=== PATIENT | male | born 1970 | race Caucasian/White ===

== ENCOUNTER → 2017-01-23 14:38 | Outpatient (CLI) | payer BC | END | disposition home or self-care (01) | LOC: D.CT 14:30 | DX: J32.9 Chronic sinusitis, unspecified (principal) ==

== ENCOUNTER 2017-04-12 14:19 | Inpatient (IN) | payer BC ==
[~2017-04-12] VITALS: Ht 170.2 cm; Wt 77.1 kg
[2017-04-12 14:46] LABS: BASOPHILS 0.2 % (0-2); HEMATOCRIT 48.1 % (42.0-54.0); HEMOGLOBIN 17.3 g/dL (13.5-17.5); IMMATURE GRANULOCYTES 0.5 % (0-5); LYMPHOCYTES 19.7 % (15-50); MCH 30.4 pg (26.0-34.0); MCV 84.5 fL (80.0-100.0); MEAN PLATELET VOLUME 11.8 fL (7.4-10.4); MONOCYTES 8.3 % (2-11); NEUTROPHILS 68.3 % (40-80); PLATELET COUNT 207 10x3/uL (130-400); RBC 5.69 10x6/uL (4.20-6.10); RDW 12.5 % (11.5-14.5); WBC 10.4 10x3/uL (4.8-10.8)
[2017-04-12 15:05] LABS: ALBUMIN 3.6 g/dL (3.4-5.0); ANION GAP 20.7 mmol/L (8-16); BILIRUBIN - TOTAL 0.82 mg/dL (0.2-1.3); CALCIUM 9.2 mg/dL (8.5-10.1); CARBON DIOXIDE 18.1 mmol/L (21.0-32.0); CREATININE - SERUM 1.2 mg/dL (0.6-1.3); POTASSIUM - SERUM 4.8 mmol/L (3.5-5.1); PROTEIN - SERUM 7.7 g/dL (6.4-8.2)
[2017-04-12] MEDS ORDERED: AMBIEN10 MG PO (18:58)
[2017-04-12] MEDS ORDERED: ALLEGRA-D1 TAB.SR1 PO (18:58)
[2017-04-12 20:00] VITALS: BP 136/88
[2017-04-12 20:22] VITALS: BP 119/82; BMI 26.7
[2017-04-13] VITALS: BP 139/83
[2017-04-13 04:00] VITALS: BP 130/83
[2017-04-13 05:45] LABS: BASOPHILS 0.1 % (0-2); EOSINOPHILS 1.8 % (0-7); HEMATOCRIT 42.4 % (42.0-54.0); HEMOGLOBIN 14.9 g/dL (13.5-17.5); IMMATURE GRANULOCYTES 0.3 % (0-5); LYMPHOCYTES 17.6 % (15-50); MCH 30.3 pg (26.0-34.0); MCHC 35.1 g/dL (31.0-37.0); MCV 86.2 fL (80.0-100.0); MEAN PLATELET VOLUME 10.8 fL (7.4-10.4); MONOCYTES 11.9 % (2-11); NEUTROPHILS 68.3 % (40-80); RBC 4.92 10x6/uL (4.20-6.10); RDW 12.6 % (11.5-14.5); WBC 11.4 10x3/uL (4.8-10.8)
[2017-04-13 05:48] LABS: PLATELET COUNT 155 10x3/uL (130-400)
[2017-04-13 06:16] LABS: ALBUMIN 3.2 g/dL (3.4-5.0); ALKALINE PHOSPHATASE 73 U/L (46-116); ALT (SGPT) 42 U/L (10-68); BILIRUBIN - TOTAL 0.93 mg/dL (0.2-1.3); CALCIUM 8.3 mg/dL (8.5-10.1); CHLORIDE - SERUM 102 mmol/L (98-107); MAGNESIUM - SERUM 1.9 mg/dL (1.8-2.4); PHOSPHOROUS 3.1 mg/dL (2.5-4.9); PROTEIN - SERUM 6.7 g/dL (6.4-8.2); SODIUM 138 mmol/L (136-145); UREA NITROGEN 12 mg/dL (7-18)
[2017-04-13 06:23] LABS: CALC OSMOLALITY 282 mosm/kg (275-300); CARBON DIOXIDE 26.1 mmol/L (21.0-32.0); CREATININE - SERUM 0.8 mg/dL (0.6-1.3); GLUCOSE 229 mg/dL (74-106); POTASSIUM - SERUM 3.8 mmol/L (3.5-5.1); eGFR NON AFRICAN AMERICAN > 90 mL/min (90-120)
[2017-04-13 06:55] LABS: APPEARANCE CLEAR (CLEAR); BILIRUBIN NEGATIVE (NEGATIVE); COLOR YELLOW (YELLOW); GLUCOSE 1000 mg/dL (NEGATIVE); KETONE SMALL mg/dL (NEGATIVE); NITRITE NEGATIVE (NEGATIVE); PROTEIN NEGATIVE (NEGATIVE); UROBILINOGEN NORMAL (NORMAL)
[2017-04-13 06:58] LABS: EPITHELIAL CELLS 0-5 /hpf (0-5); RED CELLS - URINE OCC /hpf (0-5)
[2017-04-13 06:59] LABS: BACTERIA FEW /hpf (NONE SEEN); HYALINE CAST OCC /lpf (NONE SEEN); WAXY CAST RARE /lpf (NONE SEEN); YEAST >1+ WITH HYPHAE /hpf (NONE SEEN)
--- NOTE | 2017-04-13 08:00 | NUR ---
PT LEFT FLOOR FOR PROCEDURE, A&O, DENIES NEEDS
[2017-04-13 08:24] VITALS: BP 138/83
[2017-04-13 11:44] VITALS: BP 131/82
[2017-04-13 12:15] VITALS: Ht 170.2 cm; Wt 77.1 kg
--- NOTE | 2017-04-13 19:15 | NUR ---
PATIENT IS AWAKE, ALERT AND ORIENTED X'S 4. PATIENT IS TALKING ON THE PHONE, HE GOT OFF THE PHONE TO TALK TO ME. HE ASKED IF HE IS GOING TO HAVE TO CONTINUE INSULIN FOR THE REST OF HIS LIFE. I EXPLAINED TO PATIENT THAT IF HE IS DIAGNOSED WITH TYPE 2 DIABETES IT CAN POSSIBLY BE CONTROLLED WITH DIET AND EXERCISE. EXPLAINED TO PATIENT THAT HE WILL NEED TO TALK TO HIS PRIMARY CARE PHYSICIAN ABOUT A PLAN TO CONTROL HIS BLOOD SURGAR. EXPLAINED THAT THERE ARE ALSO ORAL DIABETIC MEDICATION, BUT HE WILL HAVE TO TALK TO HIS DOCTOR ABOUT IT. HE VERBALIZED UNDERSTANDING. PALPATED BILATERAL PEDAL PULSES, EQUAL 2+ BILATERALLY. CAPILLARY REFILL <3 SECONDS IN ALL EXTREMETIES. NO VISIBLE BLOOD ON THE OUTSIDE OF DRESSING. KNEE IMMOBILIZER IS ON THE RIGHT KNEE. DENYS WRAP BANDAGE INTACT. PATIENT DENIES NEEDS AT THIS TIME. BED IN LOWEST POSITION, CALL LIGHT IN REACH. BED RIALS UP X'S 1, PER PATIENT REQUEST. AT BEDSIDE.
--- NOTE | 2017-04-13 20:47 | NUR ---
PATIENT IS REQUESTED AMBVONNIE FOR SLEEP. PAGED .
--- NOTE | 2017-04-13 20:53 | NUR ---
CALLED CASH ON DELIVERY CLERK, NOTIFIED HER OF NEEDING AMBIEN PULLED FROM THE PYXIS.
[2017-04-13 21:25] VITALS: BP 127/76
[2017-04-14 00:27] VITALS: BP 122/77
[2017-04-14 05:53] VITALS: BP 119/80
[2017-04-14 06:02] LABS: BASOPHILS 0.1 % (0-2); EOSINOPHILS 0.4 % (0-7); HEMATOCRIT 38.2 % (42.0-54.0); IMMATURE GRANULOCYTES 0.2 % (0-5); MCH 29.4 pg (26.0-34.0); MCV 86.4 fL (80.0-100.0); MEAN PLATELET VOLUME 10.6 fL (7.4-10.4); MONOCYTES 10.2 % (2-11); NEUTROPHILS 82.1 % (40-80); PLATELET COUNT 128 10x3/uL (130-400); RBC 4.42 10x6/uL (4.20-6.10); RDW 12.4 % (11.5-14.5); WBC 12.9 10x3/uL (4.8-10.8)
[2017-04-14 06:18] LABS: ANION GAP 13.6 mmol/L (8-16); CALCIUM 7.2 mg/dL (8.5-10.1); CARBON DIOXIDE 24.4 mmol/L (21.0-32.0); MAGNESIUM - SERUM 1.8 mg/dL (1.8-2.4); PHOSPHOROUS 3.1 mg/dL (2.5-4.9)
[2017-04-14 06:21] LABS: CREATININE - SERUM 1.4 mg/dL (0.6-1.3)
--- NOTE | 2017-04-14 07:30 | NUR ---
RECIEVED PT DURING WALKING ROUNDS. PT LATING IN BED WITH COMPLAINTS OF PAIN OF A 10 ON A SCALE OF 1-10, CUSTOM TAILOR APPRENTICE IN USE. ASSESSMENT DONE PER FLOWSHEET. BED IN LOW POSITION AND CALL LIGHT WITHIN REACH. WILL CONTINUE TO MONITOR.
[2017-04-14 07:44] VITALS: BP 107/69
--- NOTE | 2017-04-14 08:38 | OP ---
PATIENT NAME: REMA GASTON MEDICAL RECORD: [id number] :70 LOCATION:D.MS Morales2238 ADMISSION DATE:04/12/17 SURGEON: GOMEZ CALVO DO DATE OF OPERATION: 04/13/2017 PROCEDURE PERFORMED: Right tibial plateau open reduction and internal fixation. PREOPERATIVE DIAGNOSIS: Closed right tibial plateau fracture. POSTOPERATIVE DIAGNOSIS: Closed right tibial plateau fracture. INDICATIONS: Mr. Gaston is a 46-year-old male who fell out of a tree yesterday, sustained a right proximal tibia fracture, was comminuted into the plateau noted on CT scan that is very minimally displaced and after CT scan was done, he was seen and warned of the risks and benefits of this procedure, informed that he should probably get this fixed, so it did not collapse due to the fracture and he consented to have the procedure done. He was consented in the hospital. DESCRIPTION OF PROCEDURE: The patient was in the preoperative area given a block by anesthesia and taken to the operative suite, laid in supine position, given vancomycin preoperatively. The right leg was prepped and draped in sterile fashion, time out was performed and everyone was in agreement with the correct site and then the leg was elevated and Esmarch was used to exsanguinate the leg. A tourniquet was inflated to 350 mmHg, was up for 82 minutes total during the procedure. Blood loss approximately 100 mL. Once the tourniquet was inflated, the knee was flexed approximately 30 degrees. An incision was made between the IT band down to Gerdy's tubercle and down the proximal tibia somewhat. Careful dissection was made down through the IT band and then to the capsule of the knee and the proximal tibia. The tibialis anterior was cleared off. The anterior insertion was of the tibia. Once this was done, a clear spot was made for the plate. The plate was placed and once we got the plate placement in the correct position, K-wires were shot through to hold the plate in place and 2 proximal screws were placed and sucked the plate down and then the kickstand screw shaft was placed. Once this was done, 2 more proximal screws were placed, locking screws as well as a multidirectional in the more distal row of the proximal tibia plate to catch the posterior piece of the fracture fragment. Once this was done, there were 3 total screws in the proximal row and 3 in the more distal row in the proximal tibia. Then, another 2 of the screws were put in the shaft. The kickstand screw was changed out as well as the first 2 proximal screws put in. These were changed out and due to the length, this is all done under fluoroscopy and once we had the screws in, tourniquet was let down at 82 minutes. All the bleeding was coagulated with the Bovie. Yan was placed into the wound and then the IT band and some of the fascia over the anterior tibia was closed with [id number] 0 Vicryl suture. More Yan was placed on top of that and then the wound itself. Skin was closed with 2-0 Vicryl and then a zipline on the skin. This was done and Adaptic, 4 x 4s, ABD, Webril, and Armin wrap were placed over the incision. The patient was placed in a knee immobilizer. He is awakened and taken to recovery in stable condition. Blood loss approximately 100 mL. Tourniquet again was let down at 82 minutes. TRANSINT:[id number] Voice Confirmation ID: [id number] DOCUMENT ID: [id number] OPERATIVE REPORT [id number] REMA GASTON MICHAEL D, DO at 0838 CC: [id number] DICTATION DATE: 04/13/17 112 SENIOR SHAREPOINT DEVELOPER: 04/13/17 1304 ADM IN [facility] [address] [place] [address]
[2017-04-14 12:25] VITALS: BP 142/83
--- NOTE | 2017-04-14 12:36 | CN ---
PATIENT NAME:REMA DRAPER MEDICAL RECORD: [id number] : 70 LOCATION:D.MS Morales2238 ADMIT DATE: 04/12/17 ACCOUNT: [id number] CONSULTING PHYSICIAN: PAT RAMIREZ DO REFERRING PHYSICIAN: PAT FLORES MD DATE OF CONSULTATION: 04/13/2017 HISTORY OF PRESENT ILLNESS: A 46-year-old male admitted to general surgery, Dr. Flores for acute trauma, fell out of a tree, had abdominal pain. CTs negative for CT head, abdomen and C-spine negative. Imaging of the right knee showed comminuted displaced tibial plateau fracture. He is status post open reduction internal fixation, was found to have significantly elevated blood sugar of 465 on admission, consult for medical management of diabetes. Initial understanding was that he has new onset diabetes. The patient has prior history of diabetes. He has declined medications and is very rare to seek medical care. ALLERGIES: LISTED PENICILLIN, SULFA, TETRACYCLINE. MEDICATIONS: Only current medication listed as Ambien. REVIEW OF SYSTEMS: GENERAL: No acute change in weight or appetite. HEENT: No cephalgia, visual changes, tinnitus, epistaxis or dysphagia. CARDIOVASCULAR: Denies chest pain. PULMONARY: Denies hemoptysis. GASTROINTESTINAL: Had abdominal pain secondary to his fall out of the tree. No significant trauma via CT. MUSCULOSKELETAL: Comminuted fracture as noted above, status post open reduction internal fixation. ENDOCRINE: Previously diagnosed diabetes. The patient has declined treatment. PHYSICAL EXAMINATION: VITAL SIGNS: Temperature 98.2, blood pressure 131/82, heart rate 104, respirations 18, O2 saturation 98%. GENERAL: Alert, slightly sedated status post surgery. HEENT: Normocephalic, atraumatic. Eyes: Pupils equal, round, reactive. Ears: Canals patent, TMs are intact. Nose: Nares patent without drainage. Throat: No erythema, no exudates. NECK: Supple. No lymphadenopathy, no JVD. HEART: Regular rate and rhythm. LUNGS: Clear. ABDOMEN: Soft. EXTREMITIES: Present times 4. Again, status post open reduction internal fixation comminuted tibial plateau fracture. LABORATORY DATA: Urinalysis yellow clear, negative protein, small ketones, few bacteria. CBC: White count 11.4, hemoglobin 14.9, hematocrit 42.4, platelets 155. Chemistry shows sodium of 138, potassium 3.8, chloride 102, bicarbonate 26.1, BUN 12, creatinine 0.8, glucose 229, phosphorus 3.1, magnesium 1.9. LFTs normal. Glucose on admission 43. ASSESSMENT AND PLAN: Diabetes mellitus, status post trauma, status post open reduction internal fixation of tibial plateau fracture. Sliding scale insulin. Supportive care and diabetic diet. We will also obtain a hemoglobin A1c. Discussed with the patient what his sugars have been running on average for the CONSULT REPORT [id number] REMA DRAPER past month. TRANSINT:[id number] Voice Confirmation ID: [id number] DOCUMENT ID: [id number] PAT RAMIREZ DO at 1236 CC: [id number] DICTATION DATE: 04/13/17 1252 SHEARER PRINTED CIRCUIT BOARDS: 04/13/17 1357 ADM IN [facility] [address] [place] [address]
[2017-04-14 16:09] VITALS: BP 126/81
[2017-04-14 20:25] VITALS: BP 123/76
--- NOTE | 2017-04-14 23:51 | NUR ---
UPON ENTERING ROOM PATIENT RESTING WITH EYES CLOSED, SNORING. WOKE PATIENT UP TO CHECK HIS FINGER STICK BLOOD SUGAR. PATIENT AROUSED EASILY. HE WAS COOPERATIVE. LEFT ROOM TO GET INSULIN AND ANOTHER NURSE TO CO-SIGN. UPON RETURNING TO ROOM PATIENT ASLEEP, WOKE PATIENT UP TO GIVE HIM INSULIN. ADMINISTERED INSULIN PER ORDER. ASKED PATIENT ABOUT HIS PAIN, HE STATED "IT IS THE SAME, IT IS STILL A 10. I MOVED IT TO SEE IF IT WOULD HELP BUT IT DID NOT HELP AT ALL." I STATED "SO YOU DID NOT GET ANY RELIEF AT ALL FROM THE PAIN MEDICATION?" PATIENT STATED "NO. IT STILL FEELS THE SAME." OFFERED PATIENT AN ICE PACK, HE STATED "I CANNOT FEEL IT THROUGH THE BANDAGE, IT DOES NOT HELP WITH MY PAIN." I STATED "OKAY WELL I AM GOING TO TURN OFF YOUR LIGHT AND LET YOU GET SOME MORE REST." PATIENT AGREED.
[2017-04-15 00:40] VITALS: BP 121/64; BP 123/74
[2017-04-15 04:58] LABS: HEMOGLOBIN 12.9 g/dL (13.5-17.5)
[2017-04-15 08:22] VITALS: BP 132/79
[2017-04-15 13:02] VITALS: BP 130/74
--- NOTE | 2017-04-15 14:06 | NUR ---
NUTRITION F/U CHART REVIEWED, PT VISIT X2. SPOUSE AT BEDSIDE. INITIAL DM DIET EDU. PT IN PAIN LEFT LITERATURE FOR PT AND SPOUSE TO REVIEW. BRIEFLY DISCUSSED DM DIET GUIDELINES AND CHECKING GLUCOSE. WILL RETURN TO REVIEW INFO, ANSWER QUESTIONS WHEN APPROPRIATE. RD FOLLOWING
--- NOTE | 2017-04-15 14:15 | NUR ---
PT STATES PAIN IS 10/10 WHEN AWAKENED FOR TYLENOL SCHEDULE. DRIFTS BACK TO SNORING AFTER FINISHED TALKING. REPOSITIONED IN BED WITH PILLOWS UNDER RIGHT LEG FOR ELEVATION. CALL LIGHT IN REACH
[2017-04-15 16:21] VITALS: BP 129/76
--- NOTE | 2017-04-15 18:49 | NUR ---
VPatient Name: REMA DRAPER Admission Status: ER Accout number: [id number] Admission Date: 04-12-2017 : 1970 Admission Diagnosis: Attending: PAT FLORES Current LOS: 3 Anticipated DC Date: 04-16-2017 Planned Disposition: Home with Home Health Primary Insurance: [employer] OUT OF STATE Discharge Planning Comments: LATE ENTRY 1357 CM TO BEDSIDE TO DISCUSS DISCHARGE NEEDS. HIS , GRISELDA, HAD STEPPED OUT TO GET ICE PACK. 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 PLANS TO TAKE SOME VACATION TO ASSIST AT HOME. THEY HAVE A YOUNG DAUGHTER. CM HAD REVIEWED PHYSICAL THERAPY NOTES. THE PATIENT HAD DECLINED THERAPY 04/14. HE STATED HE WAS OOB TO THE CHAIR THIS AM. HE REMAINS IN BED. MOVING VERY LITTLE. STATES HE HAS A LOT OF PAIN W/ MOVEMENT. STATES DR CALVO SAID HE WOULD NEED A WALKER FOR HOME. DISCUSSED HOME HEALTH. PATIENT WAS UNCOMFORTABLE. REALLY DID NOT FEEL LIKE TALKING. DID NOT WANT HIS TO ANSWER QUESTIONS. CALLED [phone] TO [employer]. LEFT MSG AT [phone] DIRECTED BY [employer] 800 LINE. NO CB YET. SPOKE SG THE DIETITIAN. HE HAS VISITED WITH THE PATIENT FOR TEACHING AND IS PROVIDING REFERENCE MATERIAL. HE HAS SPOKEN WITH THE . THE HAD QUESTIONS ABOUT DISABILITY. 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 CM ADVISED HER TO S/W SOCIAL SECURITY. DME NEED WALKER & GLUCOMETER HOME HEALTH- PHYSICAL THERAPY AND NURSING PCP- DR JAMES WATT TO FOLLOW TO ASSIST W/ DCP WHEN PATIENT MORE COMFORTABLE. Nipping Machine Operator: Bibiana Acosta
--- NOTE | 2017-04-15 20:18 | NUR ---
SCHEDULED MEDICATIONS GIVEN AT THIS TIME. PT STATED PAIN 03/12. IV LEFT HAND PATENT WITH 1/2NS @ 50. IV RIGHT WRIST SL. DENIES ANY OTHER NEEDS. WILL CONTINUE WITH PLAN OF CARE.
[2017-04-15 20:21] VITALS: BP 138/62
--- NOTE | 2017-04-15 21:30 | NUR ---
PRN DILAUDID ADMINISTERED AT THIS TIME FOR PAIN 03/12. BS 221, ADMINISTERED 10 UNITS LANTUS ORDERED. PROVIDED PT WITH ICE TO RIGHT LEG. DENIES ANY FURTHER NEEDS AT THIS TIME. WILL CONTINUE WITH PLAN OF CARE.
--- NOTE | 2017-04-16 00:50 | NUR ---
BS 281, 6 UNITS HUMULIN R ADMINISTERED PER SS.
[2017-04-16 03:50] VITALS: BP 166/75
[2017-04-16 04:14] LABS: HEMATOCRIT 36.1 % (42.0-54.0); HEMOGLOBIN 12.6 g/dL (13.5-17.5)
--- NOTE | 2017-04-16 06:27 | NUR ---
BS 158, 2 UNITS HUMULIN R ADMINISTERED AT THIS TIME.
[2017-04-16 07:57] VITALS: BP 132/81
--- NOTE | 2017-04-16 09:40 | PN ---
PATIENT:REMA DRAPER MEDICAL RECORD: [id number] LOCATION:D.MS Gao ADMISSION DATE: 04/12/17 PROGRESS NOTE DATE OF SERVICE: 04/13/2017 ADDENDUM CHIEF COMPLAINT: Pain. SUBJECTIVE: I saw the patient postoperatively. From Dr. Patino's standpoint, the patient can be dismissed home tomorrow. I have reviewed the x-ray reports including the CT of the abdomen and pelvis, CT of the head, CT of the C-spine. Dr. Mena has seen the patient regarding his diabetes. The patient is complaining of right knee pain. His FOOD SCIENCE TECHNICIAN was evidently turned off and we have turned it back on so that he can get some analgesia. Palpation of the knee aggravates. Nothing alleviates. This is a progress note addendum. For the typed portion of the progress note, please see the chart. This will include past medical and surgical history, current medications, allergies, social history as well as family history. REVIEW OF SYSTEMS: No nausea, no vomiting, no fever, no chills. Positive for extremity pain. the review of systems is negative other than as is described above. PHYSICAL EXAMINATION: GENERAL: The patient appears acutely ill. He does not appear chronically ill. VITAL SIGNS: Reviewed. EARS: External ears appear normal. EYES: Extraocular movements are intact. NECK: Trachea is midline. CHEST: No intercostal retractions. PULMONARY: Nonlabored, no stridor. ABDOMEN: nontender. EXTREMITIES: Right lower extremity has been dressed at the knee. There is a knee immobilizer in place. BACK: No thoracic kyphosis. LYMPHATIC: No lymphangitic streaking of the exposed extremities. PSYCHIATRIC: The patient is anxious. NEUROLOGIC: Answers questions appropriately. IMPRESSION: Status post fall with tibial plateau fracture and new-onset diabetes mellitus. PLAN: Hopefully, home tomorrow if his blood sugars can be controlled and he can be started on a diabetic medication regimen. TRANSINT:[id number] Voice Confirmation ID: [id number] DOCUMENT ID: [id number] PROGRESS NOTE [id number] REMA DRAPER, PAT ROBINS at 0940 CC: [id number] DICTATION DATE: 04/13/17 164 SUPERVISOR PIPELINES: 04/13/17 1845 ADM IN [place] [address] [place] [address]
--- NOTE | 2017-04-16 09:40 | PN ---
PATIENT:REMA DRAPER MEDICAL RECORD: [id number] LOCATION:D.MS Gao ADMISSION DATE: 04/12/17 PROGRESS NOTE DATE OF SERVICE: 04/14/2017 PROGRESS NOTE ADDENDUM CHIEF COMPLAINT: Pain. His pain control is suboptimal. He has been switched to oral analgesia. I am going to switch him to Dilaudid orally. Movement of the right lower extremity aggravates. Nothing alleviates. Symptoms are of qvqjwgjy-ww-lajrdv intensity. This is a progress note addendum. For the typed portion of the progress note, please see the chart. This would include past medical and surgical history, current medications, allergies, and social history as well as family history. REVIEW OF SYSTEMS: Positive for extremity pain. Positive for anxiety. No nausea. No vomiting. No fever. No chills. No chest pain. No shortness of breath. Review of systems is negative other than as is described above. PHYSICAL EXAMINATION: GENERAL: The patient does not appear acutely ill. He does not appear chronically ill. VITAL SIGNS: Reviewed. EARS: External ears appear normal. EYES: Extraocular movements are intact. NECK: Trachea is midline. CHEST: No intercostal retractions. PULMONARY: Nonlabored. No stridor. ABDOMEN: Nontender. EXTREMITIES: No peripheral cyanosis. INTEGUMENT: No rash. No ulcerations. PSYCHIATRIC: Anxious affect. NEUROLOGIC: Answers questions appropriately. BACK: No thoracic kyphosis. LYMPHATIC: No lymphangitic streaking of the exposed extremities. IMPRESSION: 1. New-onset diabetes mellitus 2. Fall. 3. Right tibial plateau fracture. PLAN: Home when okay with Dr. Mena. TRANSINT:[id number] Voice Confirmation ID: [id number] DOCUMENT ID: [id number] PROGRESS NOTE [id number] REMA DRAPER, PAT ROBINS at 0940 CC: [id number] DICTATION DATE: 04/15/17 1545 GERIATRIC NURSE: 04/15/17 1742 ADM IN [place] [id number] [place] [address]
[2017-04-16 11:34] VITALS: BP 123/81
--- NOTE | 2017-04-16 11:50 | NUR ---
CM REASSESSMENT NOTE: PATIENT AND HAS REQUESTED [facility]. REFERRAL HAS BEEN SENT. [facility] WILL CALL CM TODAY REGARDING PATIENT ACCEPTANCE OR NOT.
--- NOTE | 2017-04-16 13:02 | NUR ---
PATIENT'S MOM IN ROOM. FSBS 208. PATIENT STATED CRYING. HE HELD HIS HAND OVER HIS ARM AND STATED "PLEASE DO NOT GIVE ME A SHOT. I HATE NEEDLES. I DON'T WANT IT." PATIENT'S MOM TALKED TO PATIENT TO TRY TO CONVIENCE HIM TO TAKE THE INSULIN, PATIENT KEPT ARGUING AND YELLING AT HER. I TALKED TO HIM AND TOLD HIM THE IMPORTANCE OF THE INSULIN, HE FINALLY AGREED. ADMINISTERED INSULIN ORDERED PER SLIDING SCALE. HE DENIES OTHER NEEDS AT THIS TIME.
--- NOTE | 2017-04-16 15:11 | NUR ---
NUTRITION F/U SPOKE WITH PT X2 TODAY. PT "NOT IN A VERY GOOD MOOD" THIS AM. INFORMED PT THAT RD WOULD RETURN AT A LATER TIME. ATTEMPTED TO SPEAK WITH PT AGAIN THIS AFTERNOON. PT WANTED TO KNOW HOW MANY GRAPES HE COULD HAVE. "I LIKE GRAPES". RD EXPLAINED TO PT THAT HE NEEDED TO KNOW MORE THAN JUST ABOUT A PARTICULAR FOOD. BECAME TEARFUL. ENCOURAGED PT TO CONTACT RD WHEN HE WAS READY TO DISCUSS DIET. PT VOICED UNDERSTANDING. RD CONTACT INFO PROVIDED. RD FOLLOWING
[2017-04-16 15:55] VITALS: BP 145/87
--- NOTE | 2017-04-16 17:38 | NUR ---
PATIENT STATED "I DO NOT WANT INSULIN, I DON'T NEED IT. ITS NOT THAT BAD. I KNOW Y'ALL WANT IT TO BE AT 150, ITS ONLY 208, THAT'S NOT BAD." I EDUCATED PATIENT ON NORMAL RANGE OF BLOOD GLUCOSE, EXPLAINED THAT 150 IS HIGH BUT THAT IS WHERE WE START TREATING IT WITH INSULIN PER OUR SLIDING SCALE. EXPLAINED TO PATIENT THAT CELLS ARE DYING WHEN GLUCOSE LEVEL IS HIGH AND EXPLAINED DIABETIC COMPLICATIONS TO HIM. HE STATED "OH I AM NOT GOING TO GO BLIND OR LOSE A LEG OR ANYTHING. TRUST ME." I STATED "DIABETIC COMPLICATIONS ARE NOT RARE AT ALL. AND IF YOU ARE NOT COMPLIANT WITH TREATING YOUR DIABETES YOU ARE INCREASING YOUR RISK FOR DIABETIC COMPLICATIONS. THEY ARE VERY REAL." PATIENT AGREED TO TAKE THE INSULIN.
--- NOTE | 2017-04-16 19:45 | NUR ---
PT IS LYING IN BED ON RT SIDE STATED HAD A HORRIBLE DAY AND JUST WANTS TO SLEEP. PT PAIN IN RT LEG IS AT A 10+, RUBÉN GÓMEZ HAS GOTTEN PT PAIN MED AND IN PROCESS OF ADMIN. NO OTHER SIGNS OF DISTRESS, CONTINUE WITH PLAN OF CARE
[2017-04-16 20:00] VITALS: BP 130/74
--- NOTE | 2017-04-16 20:00 | NUR ---
ADMINISTERED DILAUDID 2MG PO, ORDERED PRN. PATIENT STATED "MY PAIN IS OFF THE CHARTS." AND DAUGHTER AT BEDSIDE. SPOKE WITH PATIENT AND HIS ABOUT DIABETIC COMPLICATIONS AND THE IMPORTANCE OF KEEPING BLOOD GLUCOSE LEVEL IN A NORMAL RANGE. BOTH VERBALIZED UNDERSTANDING. BOTH DENY NEEDS AT THIS TIME. BED IN LOWEST POSITION, CALL LIGHT IN REACH. BED RAILS UP X'S 2.
[2017-04-17 04:00] VITALS: BP 128/69
--- NOTE | 2017-04-17 04:08 | NUR ---
PT. IN BED WITH HOB UP FOR COMFORT WITH EYES CLOSED AND RESP. EVEN. CALL LIGHT WITHIN REACH.
[2017-04-17 06:48] VITALS: BP 128/69
[2017-04-17] MEDS ORDERED: OXYCODONE HCL5 MG PO (08:07)
[2017-04-17] MEDS ORDERED: ATARAX 25 MG TA25 MG PO (08:07)
[2017-04-17] MEDS ORDERED: ELIQUIS2.5 MG PO (08:07)
[2017-04-17] MEDS ORDERED: ZOFRAN ODT4 MG/UDTAB PO (08:11)
--- NOTE | 2017-04-17 08:18 | NUR ---
pt seen. more calm this am. states nerve pill has helped. right leg in immobilizer with knee octavia wrapped. able to move toes freely-warm and pink. states pain is better controlled today. hoping for discharge to rehab later today. call light in reach
[2017-04-17 08:42] LABS: BASOPHILS 0 % (0-2); EOSINOPHILS 1.5 % (0-7); HEMATOCRIT 38.3 % (42.0-54.0); HEMOGLOBIN 13.2 g/dL (13.5-17.5); IMMATURE GRANULOCYTES 0.3 % (0-5); MCH 29.4 pg (26.0-34.0); MCHC 34.5 g/dL (31.0-37.0); MCV 85.3 fL (80.0-100.0); MEAN PLATELET VOLUME 10.5 fL (7.4-10.4); MONOCYTES 13.9 % (2-11); NEUTROPHILS 73.3 % (40-80); RBC 4.49 10x6/uL (4.20-6.10); RDW 12.3 % (11.5-14.5); WBC 9.6 10x3/uL (4.8-10.8)
[2017-04-17 08:43] LABS: PLATELET COUNT 180 10x3/uL (130-400)
[2017-04-17 08:53] LABS: ALBUMIN 2.3 g/dL (3.4-5.0); ANION GAP 11.8 mmol/L (8-16); BILIRUBIN - TOTAL 0.84 mg/dL (0.2-1.3); CALCIUM 8.8 mg/dL (8.5-10.1); CARBON DIOXIDE 29.6 mmol/L (21.0-32.0); CREATININE - SERUM 1.3 mg/dL (0.6-1.3); POTASSIUM - SERUM 3.4 mmol/L (3.5-5.1); PROTEIN - SERUM 6.9 g/dL (6.4-8.2)
[2017-04-17 09:32] VITALS: BP 136/82
[2017-04-17 13:03] VITALS: BP 117/77
[2017-04-17 15:34] VITALS: BP 120/76
--- NOTE | 2017-04-17 18:14 | NUR ---
OT NOTE: PT EXHIBITED SELF LIMITING BEHAVIORS. PT REQUIRED EXTENSIVE VERBAL ENCOURAGEMENT TO COMPLETE BUE AROM EXS. PT REFUSED EOB SITTING. THANK YOU, HARSHAL RATLIFF/Shorty
--- NOTE | 2017-04-17 20:00 | NUR ---
PATIENT IS AWAKE, ALERT AND ORIENTED X'S 4. RESPIRATIONS ARE EVEN AND UNLABORED ON ROOM AIR. FACIAL GRIMMACING, TEARFUL. REQUESTED PAIN MEDICATION WHEN IT BECOMES AVAILABLE. DAUGHTER AND IN ROOM AT BEDSIDE. BED IN LOWEST POSITION, CALL LIGHT IN REACH. BED RIALS UP X'S 2.
--- NOTE | 2017-04-17 21:30 | NUR ---
PATIENT REQUESTED TO GET SOME SLEEP, HE ASKED HOW HE CAN GET THE MOST AMOUNT OF UNDISTURBED REST POSSIBLE. HE VERBALIZED FEELING ANGERY ABOUT GETTING WOKE UP FOR V/S YESTERDAY NIGHT. I EXPLAINED TO PATIENT THAT V/S ARE Q4 HOURS. BUT THAT I WILL COORDINATE WITH THE SQL ENGINEER AND GET V/S AND FSBS AT THE SAME TIME.
[2017-04-17 23:09] VITALS: BP 120/76
--- NOTE | 2017-04-18 06:40 | NUR ---
REPORT RECEIVED, ASSUMED CARE OF PT. RESTING WITH EYES SHUT, EASILY AROUSED. R KNEE IMMOBILZER IN PLACE. R WRIST IV SALINE LOCKED, DRSG C/D/I. NO NEEDS VOICED AT THIS TIME. BED IN LOWEST POSITION, SIDE RAILS UP X 2, CALL LIGHT WITHIN REACH.
[2017-04-18 06:50] LABS: ALBUMIN 2.2 g/dL (3.4-5.0); BILIRUBIN - TOTAL 0.81 mg/dL (0.2-1.3); CALCIUM 8.4 mg/dL (8.5-10.1); CARBON DIOXIDE 26.9 mmol/L (21.0-32.0); CREATININE - SERUM 1.3 mg/dL (0.6-1.3); POTASSIUM - SERUM 3.9 mmol/L (3.5-5.1); PROTEIN - SERUM 6.6 g/dL (6.4-8.2)
[2017-04-18 09:42] VITALS: BP 136/88
[2017-04-18] MEDS ORDERED: GLUCOPHAGE500 MG PO (12:51)
--- NOTE | 2017-04-18 13:25 | NUR ---
CM REASSESSMENT NOTE: PATIENT IS DISCHARGING TO IP REHAB AT [facility] TODAY BY FACILITY VAN. IS AWARE OF DISCHARGE
--- NOTE | 2017-04-18 13:59 | NUR ---
R FOREARM IV D/C'D, CATHETER TIP INTACT, BLEED CONTROL, BANDAGE APPLIED. DISCHARGE INSTRUCTIONS GIVEN TO PT AND , VERBALIZED UNDERSTANDING AND SIGNED. NO NEEDS VOICED AT THIS TIME.
--- NOTE | 2017-04-18 14:15 | NUR ---
PT DISCHARGED FROM FLOOR VIA WHEELCHAIR WITH AND [facility] STAFF. PERSONAL BELONGINGS WITH PT, NO NEEDS VOICED AT THIS TIME.
--- NOTE | 2017-06-20 09:38 | DS ---
PATIENT:REMA DRAPER :70 MEDICAL RECORD: [id number] DISCHARGE SUMMARY ADMISSION DATE: 04/12/17 DISCHARGE DATE: 04/18/17 PRINCIPAL DIAGNOSES: 1. Fall out of a tree. 2. New-onset diabetes mellitus. 3. Right tibial plateau fracture. 4. Fibular fracture. OTHER DIAGNOSES: Mild asthma, history of sinus surgery, history of knee surgery, history of left arm surgery. Also include acute blood loss anemia, not requiring transfusion, hypokalemia. The patient was admitted through the Emergency Room. He underwent a CT of the abdomen and pelvis, CT of the head, CT of the cervical spine. The patient underwent ORIF of right tibial plateau fracture. DVT prophylaxis was instituted. His pain was controlled with the patient controlled analgesia pump. The patient was dismissed home on a narcotic analgesic. The patient will be following up with Dr. Calvo as well as Dr. Ramirez. CT of the chest without IV contrast revealed a negative CT of the chest without IV contrast. CT of the abdomen and pelvis without IV contrast was negative as well. CT of head without contrast revealed no acute intracranial abnormality that was demonstrated. CT of the right knee without contrast revealed an acute, comminuted, and displaced tibial plateau fracture involving the lateral articular surface of the tibial plateau, the fracture extends into the posterior and lateral aspect of the tibial metaphysis where the fracture fragments are by up to 6 mm. There is an acute, comminuted, and mildly displaced fracture of the head of the fibula. There is also hemarthrosis. CT of the cervical spine revealed no acute osseous abnormality in the cervical spine. There is some moderate loss of disc height at C6-C7 with bulging annulus contributing at least some moderate central spinal canal stenosis. TRANSINT:[id number] Voice Confirmation ID: [id number] DOCUMENT ID: [id number] PAT FLORES MD at 0938 CC: GOMEZ CALVO DO and PAT RAMIREZ DO [id number] DICTATION DATE: 06/13/17 1210 KILN STACKER: 06/13/17 1711 DIS IN 04/18/17 [facility] [address] [place] [id number]
== END 2017-04-18 14:16 | DRG 493 ==
LOC: D.ER 14:19 → D.SDCHOLD 17:30 → D.MS 17:30 → D.SDCHOLD 04-16 14:52 → D.MS 04-16 14:55
PROVIDERS: Emergency Medicine; Family Medicine; Orthopaedic Surgery; ADMIT Surgery
PROC: 0QSG04Z Reposition Right Tibia with Internal Fixation Device, Open Approach (ICD-10-PCS; principal; 2017-04-13 08:00)
DX: S82.141A Displaced bicondylar fracture of right tibia, initial encounter for closed fracture (principal); S06.0X9A Concussion with loss of consciousness of unspecified duration, initial encounter; W14.XXXA Fall from tree, initial encounter; G47.00 Insomnia, unspecified; E11.65 Type 2 diabetes mellitus with hyperglycemia

== ENCOUNTER 2017-05-29 18:29 | Emergency (ER) | payer BC ==
[2017-04-13 12:15] VITALS: BMI 26.6
[~2017-05-29 18:29] MED LIST: ALLEGRA-D1 TAB.SR1 PO; AMBIEN10 MG PO; ATARAX 25 MG TA25 MG PO; ELIQUIS2.5 MG PO; GLUCOPHAGE500 MG PO; OXYCODONE HCL5 MG PO; ZOFRAN ODT4 MG/UDTAB PO
== END 2017-05-29 20:10 | disposition home or self-care (01) ==
LOC: D.ER 18:29
DX: J11.1 Influenza due to unidentified influenza virus with other respiratory manifestations (principal); R11.2 Nausea with vomiting, unspecified

== ENCOUNTER 2018-01-24 10:00 | Day surgery (SDC) | payer BC ==
[2018-01-23 10:19] LABS: HEMOGLOBIN 14.6 g/dL (13.5-17.5); MCH 30.3 pg (26.0-34.0); MCHC 35.6 g/dL (31.0-37.0); MCV 85.1 fL (80.0-100.0); MEAN PLATELET VOLUME 11.2 fL (7.4-10.4); RBC 4.82 10x6/uL (4.20-6.10); RDW 12.7 % (11.5-14.5)
[2018-01-23 10:29] LABS: CARBON DIOXIDE 29.7 mmol/L (21.0-32.0); CREATININE - SERUM 1.3 mg/dL (0.6-1.3); POTASSIUM - SERUM 3.7 mmol/L (3.5-5.1)
[~2018-01-24] VITALS: Ht 167.6 cm; Wt 80.3 kg
--- NOTE | ~2018-01-24 | OP ---
PATIENT NAME: REMA DRAPER MEDICAL RECORD: [id number] :70 LOCATION:[facility] ADMISSION DATE: SURGEON: GOMEZ CALVO DO DATE OF OPERATION: 01/24/2018 PROCEDURE PERFORMED: Right knee arthroscopy with partial lateral meniscectomy, lateral release, and patellar chondroplasty. PREOPERATIVE DIAGNOSIS: Right knee lateral meniscal tear. 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 INDICATIONS: Mr. Draper is a 47-year-old male who had a tibial plateau fracture approximately 6-8 months ago and has had right knee pain since popping, catching, locking and pain along the medial joint line. He was examined in the office and due to his plate being there, I did not get an MRI, but due to the symptoms, we decided we do a knee scope and a look at the meniscus and do a partial meniscectomy as well as look around the rest of the knee, examine the cartilage due to his plateau fracture. He is aware of the risks, benefits of the procedure and consented to the procedure. DESCRIPTION OF THE PROCEDURE: The patient was taken to the operative suite, laid in supine position, given general anesthetic. The patient was given 2 grams of Ancef. A timeout was performed and everyone was agreement as to the correct side, site and patient and procedure. The right lower extremity was then prepped and draped in sterile fashion. After the time out, the procedure began with the lateral portal being established, anterolateral portal with an 11-blade scalpel. Trocar was then entered in the knee and the patella seemed to be maltracking in looking at it. The lateral gutter was then inspected and no loose bodies. Medial gutter was seen and no loose bodies were seen there. The knee was then flexed and brought the medial compartment into view. No chondromalacia was seen on the medial femoral condyle or the medial tibial plateau. An 18-gauge needle was then used to establish a medial portal, anteromedial portal and the 11 blade scalpel was used to establish that portal. After that was removed, the probe was then entered into the knee. The medial meniscus was inspected and probed and not seen to have any tears. The lateral meniscus was then inspected with the leg [id number] and seemed to have a tear at the very inside portion of the medial aspect of the lateral meniscus. Straight biter and a shaver were used to trim this out. The patella was then inspected and seemed to not track well, then the portals were switched to the medial portal. The medial patellar facet was then viewed and seemed to have grade III chondromalacia. At that time, it was decided to do a lateral release. A lateral release was done and tourniquet was inflated and was up for 5 minutes during the lateral release. After the lateral release was done, the knee was flexed and the patella seemed to track very well in the trochlea. No riding on the medial patellar facet as it had previously. The tourniquet was then let down. The suction was turned on. The water was turned off and excess fluid was removed out of the knee and the portal sites were closed with 4-0 Monocryl in simple inverted interrupted fashion. Steri-Strips were then placed on the knee. Adaptic, 4 x 4s, ABD, Webril and Armin wrap were then placed on the knee. Kodak hose stockinette was placed up to the knee. Blood loss was minimal. Complications were none. OPERATIVE REPORT [id number] REMA DRAPER TRANSINT:[id number] Voice Confirmation ID: [id number] DOCUMENT ID: [id number] GOMEZ CALVO DO at 1528 CC: [id number] DICTATION DATE: 01/24/18 1445 BOILERMAKER WELDER: 01/24/18 1505 [address] [place] [id number] [place] [id number]
[~2018-01-24 10:00] MED LIST changes: +BAYER CHEWABLE81 MG PO; +CELEXA20 MG PO; +COZAAR50 MG PO; +HCTZ25 MG PO; +PHENERGAN25 M1; +TRULICITY0.75 MG/0. SC
[2018-01-24 11:14] VITALS: BP 120/79; Ht 167.6 cm; Wt 80.3 kg
[2018-01-24] MEDS ORDERED: ATARAX 25 MG TA25 MG PO (13:47)
[2018-01-24] MEDS ORDERED: PERCOCET 7.5/321 TAB PO (13:48)
== END 2018-01-24 16:45 | disposition home or self-care (01) ==
LOC: D.OPS 10:00 → D.PAN 10:45 → D.OPS 12:05
PROVIDERS: Anesthesiology
DX: S83.281A Other tear of lateral meniscus, current injury, right knee, initial encounter (principal); M22.41 Chondromalacia patellae, right knee; M22.2X1 Patellofemoral disorders, right knee; Z01.812 Encounter for preprocedural laboratory examination

== ENCOUNTER 2018-05-30 07:15 | Day surgery (SDC) | payer BC ==
[~2018-05-30] VITALS: Ht 167.6 cm; Wt 85.3 kg
[~2018-05-30 07:15] MED LIST changes: +PERCOCET 7.5/321 TAB PO
[2018-05-30 07:34] LABS: HEMATOCRIT 40.8 % (42.0-54.0); HEMOGLOBIN 14.4 g/dL (13.5-17.5); MCH 29.2 pg (26.0-34.0); MCHC 35.3 g/dL (31.0-37.0); MCV 82.8 fL (80.0-100.0); MEAN PLATELET VOLUME 10.7 fL (7.4-10.4); RBC 4.93 10x6/uL (4.20-6.10); RDW 12.7 % (11.5-14.5); WBC 7.6 10x3/uL (4.8-10.8)
[2018-05-30 08:53] VITALS: BP 104/71; Ht 167.6 cm; Wt 85.3 kg
[2018-05-30] MEDS ORDERED: PERCOCET 7.5/321 TAB PO (12:20)
[2018-05-30] MEDS ORDERED: ATARAX 25 MG TA25 MG PO (12:20)
--- NOTE | 2018-05-30 13:15 | NUR ---
REC'D FROM [facility] BY Melissa SMITH RN. FAMILY AT BEDSIDE. RELATES PAIN IS A NINE TO RLE ALTHOUGH RECEIVED 2MG OF DILAUDID IN PACU AND ALSO HAD A FEMORAL AND POPLITEAL BLOCK IN OR.
--- NOTE | 2018-05-30 13:30 | NUR ---
ANESTHESIA CALLED REGARDING PT'S C/O PAIN. RELATES THE PT HAD THE TWO BLOCKS AND TO GIVE HIM TORADOL 30MG IV X1.
--- NOTE | 2018-05-30 13:43 | NUR ---
TRENTON LÓPEZDomenico TOOK TO PT. TORADOL 30MG IV ADMINISTERED PER ORDERS AND PATIENT RELATES HE HAS BEEN ON PAIN MEDS FOR SO LONG HE HAS AN IMMUNITY TO THEM AND THEY DONT HELP HIM ANYMORE.
--- NOTE | 2018-05-30 14:10 | NUR ---
WRITTEN AND VERBAL DC INST. GIVEN TO PT ALONG WITH RX. ALTHOUGH PT RELATES HE HAS NO SENSATION THAT HE RECEIVED TWO BLOCKS I STILL EXPLAINED TO HIM TO NOT PLACE HEAT OR COLD DIRECTLY ON SKIN DUE TO POSSIBLE DECREASE IN SENSATION.VERBALIZED UNDERSTANDING.
--- NOTE | 2018-05-30 14:15 | NUR ---
TOLERATED DIET. IV DC'D WITH CATHETER INTACT. DENIES RELIEF OF PAIN. RELATES HE JUST HAS TO DEAL WITH IT.
--- NOTE | 2018-05-30 15:19 | OP ---
PATIENT NAME: REMA GASTON MEDICAL RECORD: [id number] :70 LOCATION:[facility] ADMISSION DATE: SURGEON: ISAI CALVO DO DATE OF OPERATION: 05/30/2018 PROCEDURE PERFORMED: Removal of hardware, right proximal tibia. PREOPERATIVE DIAGNOSIS: Painful hardware, right proximal tibia. POSTOPERATIVE DIAGNOSIS: Painful hardware, right proximal tibia. INDICATIONS: Mr. Gaston is a 48-year-old male, who had ORIF of the right lateral tibial plateau just over 12 months ago when he fell out of a tree. He had been complaining of right knee pain for quite some time. He had a knee arthroscopy and lateral release done a couple months ago and this did not help a lot with the pain. He felt pain on the medial side of the knee where one of the screws was and he wanted the hardware removed due to that pain. I informed him of the risks and benefits of the procedure including infection, bleeding, damage to nerve and vessels, fracture, need for further surgery. He was okay with that and signed the consent. SURGEON: Isai Calvo DO DESCRIPTION OF PROCEDURE: The patient was taken to the operative suite, laid in supine position, given general anesthetic, given 900 mg of clindamycin preoperatively due to allergies. Once the right leg was prepped and draped and a time-out had been performed, the right lower extremity was esmarched and the tourniquet was inflated to 350 mmHg set for 14 minutes. Incision was then began over the old incision down to the IT band. The IT band was divided and the plate was exposed. The screws were all removed and the plate was removed. The tourniquet was then let down at 14 minutes and any bleeding was coagulated at that time. The IT band was closed with #1 Vicryl in a mfgkgy-[id number] fashion and a 2-0 Vicryl in an inverted interrupted fashion on the skin. ZipLine was placed on the skin. Adaptic, 4 x 4, ABD, Webril, and Armin wrap were then placed on the knee. The patient was placed in knee immobilizer and taken to recovery in stable condition. BLOOD LOSS: Minimal. COMPLICATIONS: None. TRANSINT:[id number] Voice Confirmation ID: [id number] DOCUMENT ID: [id number] ISAI CALVO DO at 1519 CC: [id number] DICTATION DATE: 05/30/18 1224 LEASING ASSISTANT: 05/30/18 1330 REG [facility] [address] [place] [phone]
--- NOTE | 2018-05-30 15:30 | NUR ---
DC'D HOME WITH FAMILY VIA PRIVATE VEHICLE. TAKEN TO VEHICLE VIA WC. STABLE AT TIME OF DC.
== END 2018-05-30 15:30 | disposition home or self-care (01) ==
LOC: D.OPS 07:15 → D.PAN 10:10 → D.OPS 10:15 → D.PAN 10:15 → D.OPS 15:30
PROVIDERS: Anesthesiology
DX: T84.84XA Pain due to internal orthopedic prosthetic devices, implants and grafts, initial encounter (principal); Z01.812 Encounter for preprocedural laboratory examination

== ENCOUNTER → 2018-11-17 08:04 | Outpatient (CLI) | payer BC ==
[2018-05-30 08:53] VITALS: BMI 30.4
== END | disposition home or self-care (01) ==
LOC: D.MRI 08:04
PROVIDERS: ATTEND Orthopaedic Surgery
DX: M25.561 Pain in right knee (principal)

== ENCOUNTER → 2018-12-12 07:34 | Outpatient (CLI) | payer BC ==
[2018-05-30 08:53] VITALS: BMI 30.4
== END | disposition home or self-care (01) ==
LOC: D.MRI 07:34
PROVIDERS: ATTEND Orthopaedic Surgery
DX: M54.16 Radiculopathy, lumbar region (principal)